=== PATIENT | female | born 1990 | race Caucasian/White ===

== ENCOUNTER 2018-12-20 06:19 | Inpatient (IN) ==
[2018-12-20] MEDS ORDERED: D5LR 1L W PITOCIN 10 UNITS/L 10 UNITS/1,000 ML BAG IV ONE (06:29)
[2018-12-20] MEDS ORDERED: D5 1/2 NS 1000 ML 1,000 ML IV ONE ×2 (06:29→14:46)
[2018-12-20] MEDS ORDERED: PHENERGAN INJ 25 MG IM PRN ×3 (07:10→18:59)
[2018-12-20] MEDS ORDERED: D5LR 1L W PITOCIN 10 UNITS/L 10 UNITS/1,000 ML BAG IV PRN (07:10)
[2018-12-20] MEDS ORDERED: MORPHINE SULFATE INJ 2 MG INJ IVP PRN (07:10)
[2018-12-20] MEDS ORDERED: REGLAN INJ 10 MG VIAL IVP PRN ×2 (07:10→18:28)
[2018-12-20] MEDS ORDERED: NUBAIN INJ 200 MG VIAL MULTIDOSE IVP PRN (07:10)
[2018-12-20] MEDS ORDERED: PITOCIN IVP ONE (07:10)
--- NOTE | 2018-12-20 07:27 | DR.OB ---
OB Quick Note - Assessment/Plan Assessment/Plan: L&D 12/20/18 at 6:55am S-No complaint. O-Afebrile,VSS VGC=965 with good LTV, +accel, no decel. CTX=none CVX=1cm/50%/-1/VTX AROM with clear fluid. IUPC and FSE placed. A-IUP at 39 1/7 weeks for induction PIH GERD anemia CF carrier P-Begin pitocin induction F/U preeclamptic labs Anticipate
[2018-12-20] MEDS ORDERED: NAROPIN EPIDURAL 0.2% + FENTANYL 90MCG 60 ML EPI ONE ×2 (07:34→14:46)
[2018-12-20] MEDS ORDERED: LR 1000 ML IV 1,000 ML IV ONE (07:34)
[2018-12-20] MEDS ORDERED: D5 1/2 NS 1L W PITOCIN 20 UNITS/L 20 UNITS/1,000 ML BAG IV ONE ×2 (07:35→19:01)
[2018-12-20] MEDS ORDERED: XYLOCAINE 2% and EPINEPHRINE 1:100,000 ONE ×2 (07:35→16:55)
[2018-12-20] MEDS ORDERED: FENTANYL INJ 100 mcg ONE (07:38)
[2018-12-20] MEDS: D5 1/2 NS 1000 ML 1,000 ML IV SCH ×2 (07:46→17:52)
[2018-12-20 08:36] LABS: URIC ACID 4.8 mg/dL (2.6-6.0)
[2018-12-20] MEDS ORDERED: REGLAN INJ 10 MG VIAL ONE (11:24)
--- NOTE | 2018-12-20 11:57 | DR.OB ---
OB Quick Note - Assessment/Plan Assessment/Plan: L&D 12/20/18 at 11:50am Pitocin=10mu/min. S-No complaint. s/p epidural. O-Afebrile,VSS GND=974 with good LTV, +accel, no decel. CTX=q 2-3 min., about 35-55mmHg CVX=3-4cm/50%/-1 A-IUP at 39 1/7 weeks for induction PIH GERD anemia CF carrier P-Cont. pitocin induction Anticipate
[2018-12-20] MEDS ORDERED: NS IRRIGATION 1000 ML ONE (15:07)
[2018-12-20] MEDS ORDERED: VERSED ONE (15:29)
[2018-12-20] MEDS ORDERED: PITOCIN ONE (15:29)
[2018-12-20] MEDS ORDERED: NS 100 ML IV 100 ML IV ONE (16:13)
[2018-12-20] MEDS ORDERED: ANCEF VIAL 1 GRAM ONE (16:13)
--- NOTE | 2018-12-20 16:48 | DR.OB ---
OB Quick Note - Assessment/Plan Assessment/Plan: L&D 12/20/18 at 4:45pm Pitocin=20mu/min. S-No complaint. O-Afebrile,VSS UYA=044 with good LTV, +accel, no decel. CTX=q 1 1/2 to 2 min., about 45-65mmHg CVX=4cm/50%/-1 A-IUP at 39 1/7 weeks with failure to dilate P-To C/S
[2018-12-20] MEDS ORDERED: DILAUDID INJ ONE (17:51)
[2018-12-20] MEDS ORDERED: DILAUDID INJ IVP PRN ×2 (18:28→18:59)
[2018-12-20] MEDS ORDERED: BENADRYL INJ 50 MG VIAL IVP PRN ×3 (18:28→18:59)
[2018-12-20] MEDS ORDERED: ZOFRAN INJ 4 MG VIAL IVP PRN ×2 (18:28→18:59)
[2018-12-20] MEDS ORDERED: PERCOCET TAB 5/325 MG PO PRN (18:59)
[2018-12-20] MEDS ORDERED: ADACEL or BOOSTRIX TDaP VACCINE IM ONE (18:59)
[2018-12-20] MEDS ORDERED: NARCAN INJ IVP PRN (18:59)
[2018-12-20] MEDS ORDERED: TORADOL 30 MG VIAL IVP PRN (18:59)
[2018-12-20] MEDS ORDERED: MYLICON TAB 80 MG CHEW PO PRN (18:59)
[2018-12-20] MEDS ORDERED: D5 1/2 NS 1000 ML 1,000 ML with PITOCIN 20 UNITS IV SCH ×2 (19:00)
[2018-12-20] MEDS: ZANTAC PO SCH (22:00)
[2018-12-21 05:18] LABS: HEMATOCRIT 25.8 % (36.0-47.0); HEMOGLOBIN 8.6 g/dL (12.0-16.0)
[2018-12-21] MEDS ORDERED: MOTRIN TAB 800 MG PO PRN (07:35)
[2018-12-21] MEDS: PERCOCET TAB 5/325 MG PO PRN ×4 (08:47→22:15)
[2018-12-21] MEDS: COLACE CAP 100 MG PO SCH ×2 (08:47→21:36)
[2018-12-21] MEDS: PRENATAL PLUS PO SCH (08:49)
[2018-12-21] MEDS: ZANTAC PO SCH ×2 (08:49→21:36)
[2018-12-21] MEDS: BACTROBAN CREAM TOP SCH ×2 (13:14→21:36)
[2018-12-21] MEDS: FERROUS GLUCONATE PO SCH (16:59)
[2018-12-22] MEDS: BACTROBAN CREAM TOP SCH (05:30)
[2018-12-22] MEDS: FERROUS GLUCONATE PO SCH (06:01)
[2018-12-22] MEDS: PERCOCET TAB 5/325 MG PO PRN (06:02)
[2018-12-22 08:07] VITALS: BP 150/71
[2018-12-22] MEDS: PRENATAL PLUS PO SCH (08:51)
[2018-12-22] MEDS: ZANTAC PO SCH (08:52)
[2018-12-22] MEDS: COLACE CAP 100 MG PO SCH (08:52)
[2018-12-22] MEDS ORDERED: ADACEL or BOOSTRIX TDaP VACCINE IM ONE (10:05)
== END 2018-12-22 12:05 | disposition home or self-care (01) | DRG 788 ==
LOC: LD 06:19 → MED/SURG 18:05
PROVIDERS: ADMIT Specialist; ATTEND Specialist
DX: Z23 Encounter for immunization; O99.613 Diseases of the digestive system complicating pregnancy, third trimester; O62.0 Primary inadequate contractions; D50.8 Other iron deficiency anemias; O13.3 Gestational [pregnancy-induced] hypertension without significant proteinuria, third trimester; Z14.1 Cystic fibrosis carrier; Z37.0 Single live birth; O99.013 Anemia complicating pregnancy, third trimester; Z3A.39 39 weeks gestation of pregnancy
CPT/HCPCS: 36415; 83615; 84450; 84460; 84550; 85014; 85018; 85384; 85610; 85730; 90715; A4216; A4222; S0197; J0690; J1170; J1200; J1885; J2001; J2250; J2590; J2765; J3010; J3490; J7050; J7120; S5010